=== PATIENT | female | born 1990 | race Caucasian/White ===

== ENCOUNTER 2023-04-01 09:50 | Emergency (ER) | payer SELFPAY ==
[~2023-04-01] VITALS: Ht 167.6 cm; Wt 72.0 kg
[2023-04-01 10:23] VITALS: BP 137/96; PULSE 114; RESP 20; TEMP 98; O2SAT 97
[2023-04-01] MEDS ORDERED: TOPUD MT (13:48)
[2023-04-01] MEDS ORDERED: LIDO700A15 TP (13:48)
== END 2023-04-01 14:38 | disposition home or self-care (01) ==
LOC: ER 09:50
DX: S20.219A Contusion of unspecified front wall of thorax, initial encounter (principal); S00.81XA Abrasion of other part of head, initial encounter; R10.13 Epigastric pain; V49.9XXA Car occupant (driver) (passenger) injured in unspecified traffic accident, initial encounter; Y93.89 Activity, other specified; Y92.89 Other specified places as the place of occurrence of the external cause; Y99.8 Other external cause status
CPT/HCPCS: 71045; 74176; 81025; 99284